=== PATIENT | male | born 1985 ===

== ENCOUNTER 2020-05-09 05:56 | Day surgery (SDC) | payer OTHER | END 2020-05-09 13:45 | disposition home or self-care (01) | LOC: CIR.AMB 05:56 → ADM 07:45 → CIR.AMB 13:45 | PROVIDERS: ATTEND Otolaryngology Otology & Neurotology | DX: H60.42 Cholesteatoma of left external ear (principal); H72.02 Central perforation of tympanic membrane, left ear ==

== ENCOUNTER → 2021-12-24 07:54 | Outpatient (CLI) | payer OTHER | END | disposition home or self-care (01) | LOC: LAB 07:54 | PROVIDERS: ATTEND Emergency Medicine Pediatric Emergency Medicine | DX: Z03.818 Encounter for observation for suspected exposure to other biological agents ruled out (principal) ==